=== PATIENT | male | born 1940 | race Caucasian/White ===

== ENCOUNTER → 2017-11-13 | Day surgery (SDC) | payer MEDICARE, BC ==
[~2017-11-13] MED LIST: ALEVE; ASPIR 8181 MG PO; ATORVASTATIN CA20 MG PO; BALANCED SALT SOLN (OPTH) 15 ML BTL IO ONE; BUMETANIDE2 MG; CENTRUM SILVER1 EAC1; CHOLESTEROL MA1 EACH; CYCLOBENZAPRINE10 MG; DIAZEPAM5 MG PO; DOXYLAMINE; EDARBI80 MG PO; FENTANYL CITRATE/PF 100MCG/2 ML INJ ONE; FLOMAX0.4 MG PO; GABAPENTIN300 MG PO; GELATIN SPONGE 12-7MM ONE; HYDROCODON-ACE1 EAC9 PO; LASIX20 MG PO; LIDOCAINE 2% /EPINEPHRINE 20 ML SDV INJ ONE; LIDOCAINE HCL 2% LOCAL INJ 5 ML SDV VIAL INJ ONE; LOVASTATIN20 MG PO; LOVASTATIN40 MG PO; METAMUCIL; MEVACOR20 MG PO; MIDAZOLAM HCL 2 MG/2 ML VIAL ONE; NEOMYCIN/POLYMYXIN/DEX (OPTH) 3.5 GM TUBE ONE; OPANA10 MG PO; PROPOFOL IV EMULSION 10 MG/ML 20 ML VIAL ONE; UNISOM50 MG PO; [UNRECOGNIZED DRUG - OTHER]
== END | disposition home or self-care (01) ==
LOC: OR 13:16
PROVIDERS: ATTEND Ophthalmology
DX: H02.834 Dermatochalasis of left upper eyelid (principal); H02.831 Dermatochalasis of right upper eyelid; I10 Essential (primary) hypertension; I44.0 Atrioventricular block, first degree; Z88.5 Allergy status to narcotic agent; Z88.2 Allergy status to sulfonamides
CPT/HCPCS: 15823; J2001 ×2; J2250

== ENCOUNTER → 2018-08-20 | Outpatient (CLI) | payer MEDICARE, BC ==
[~2018-08-20] MED LIST changes: -BALANCED SALT SOLN (OPTH) 15 ML BTL IO ONE; -FENTANYL CITRATE/PF 100MCG/2 ML INJ ONE; -GELATIN SPONGE 12-7MM ONE; -LIDOCAINE 2% /EPINEPHRINE 20 ML SDV INJ ONE; -LIDOCAINE HCL 2% LOCAL INJ 5 ML SDV VIAL INJ ONE; -MIDAZOLAM HCL 2 MG/2 ML VIAL ONE; -NEOMYCIN/POLYMYXIN/DEX (OPTH) 3.5 GM TUBE ONE; -PROPOFOL IV EMULSION 10 MG/ML 20 ML VIAL ONE
--- NOTE | 2018-08-20 10:58 | Diagnostic Imaging Report ---
EXAMINATION: PA and lateral views of the chest. COMPARISON: None CLINICAL HISTORY: Bronchitis DISCUSSION: Lines/tubes: None. Lungs: Linear scarring/atelectasis in the left lung. No pneumonia or pulmonary edema. Pleura: No pleural effusion or pneumothorax. Heart and mediastinum: The cardiomediastinal silhouette is normal. Bones and soft tissues: No acute bony abnormalities. Remote healed rib fractures. IMPRESSION: No acute cardiopulmonary abnormalities. Signed by: Dr. Kareem Fair M.D. on 08/20/2018 10:55 AM
== END ==
LOC: RAD 10:22
PROVIDERS: ATTEND Internal Medicine
DX: J40 Bronchitis, not specified as acute or chronic (principal)
CPT/HCPCS: 71046

== ENCOUNTER 2018-08-22 15:00 | Emergency (ER) | payer MEDICARE, BC ==
[~2018-08-22] VITALS: Ht 175.3 cm; Wt 124.7 kg
--- OUTSIDE RECORDS SUMMARY | 2018-08-22 15:03 | XMS REPORT ---
Author Author [facility] Address Unknown Phone Unavailable Care Team Providers Care Form Grader Operator Name Role Phone TEO GARCIA Unavailable Unavailable Payers Payer Name Policy Type Policy Number Effective Date Expiration Date Problems This patient has no known problems. Allergies, Adverse Reactions, Alerts Allergy Name Allergy Type Status Severity Reaction(s) Onset Date Inactive Date Treating Clinician Comments Sulfa (Sulfonamide Antibiotics) DA Active U 2018-07-26 00:00:00 No Known Contrast Allergies DA Active U 2005-11-09 00:00:00 No Known Drug Allergies DA Active U 2005-11-09 00:00:00 No Known Food Allergies DA Active U 2005-11-09 00:00:00 No Known Other Allergies DA Active U 2005-11-09 00:00:00 No Known Drug Intolerances DA Active U 2003-05-11 00:00:00 Medications This patient has no known medications. Results Test Description Test Time Test Comments Text Results Atomic Results Result Comments CHEST 2 VIEWS 2018-08-20 10:54:00 [place] [address] Patient Name: MATHEW SAMPSON MR #: [id number] : 1940 Age/Sex: 78/M Req #: [id number] Adm Physician: Ordered by: TEO GARCIA MD Report #: [id number] Location: [facility] Room/Bed: Procedure: [id number] DX/CHEST 2 VIEWS Exam Date: 08/20/18 Exam Time: 1030 REPORT STATUS: Signed EXAMINATION: PA and lateral views of the chest. DEV RISON: None CLINICAL HISTORY: Bronchitis DISCUSSION: Lines/tubes: None. Lungs: Linear scarring/atelectasis in the left lung. No pneumonia or pulmonary edema. Pleura: No pleural effusion or pneumothorax. Heart and mediastinum: The cardiomediastinal silhouette is normal. Bones and soft tissues: No acute bony abnormalities. Remote healed rib fractures. IMPRESSION: No acute cardiopulmonary abnormalities. Signed by: Dr. Henry Lucas M.D. on 08/20/2018 10:55 AM Dictated By: HENRY LUCAS MD 1055 Transcribed By: ROLAND on 08/20/18 1055 COPY TO: TEO GARCIA MD - XR FLUORO FOR SPINE INJ 2018-07-29 13:13:00 Patient Name: AMTHEW SAMPSON III Unit No: [id number] EXAMS: CPT CODE: [id number] XR FLUORO FOR SPINE INJ [id number] LUMBAR EPIRADICULAR INJECTION REFERRAL PHYSICIAN: Owen Price M.D. PREOPERATIVE DIAGNOSIS: Lumbar Radiculitis POSTOPERATIVE DIAGNOSIS: Lumbar postlaminectomy with early grade 1 L4-5 spondylolisthesis, spinal stenosis and bilateral lower extremity radicular pain PROCEDURES PERFORMED: Fluoroscopically guided needle localization of the bilateral L4 and bilateral L5 spinal nerves with transforaminal epidurograms and epidural injection of local anesthetic and steroid. FINDINGS: Moderately ti ght flow seen through the foramen on the right and flow was limited in the bilateral L4-5 lateral recesses and centrally across the L4-5 disc where mild anterior epidural displacement was noted. Provocation with injection was negative. Anesthetic response was positive with the patient noting complete relief of his low back and radiating bilateral hip pains. Preinjection VAS 10/10. Postinjection VAS 0/10. Steroid response pending follow-up. ESTIMATED BLOOD LOSS: Minimal ANESTHESIA: TIVA COMPLICATIONS: None DETAILS OF PROCEDURE: After obtaining stable vital signs, informed consent and IV access, with no contraindications, the patient was taken to the operating room and placed in a prone position with all extremities padded and appropriate monitors placed. The patient was sterilely prepped and draped over the lumbosacral spine. Using fluoroscopic visualization the insertion sites were marked for paravertebral approaches and using standard technique, a 25 gauge needle was advanced to the base of each pedicle without paresthesias. Isovue-300 contrast 0.2 mL of was injected incrementally with frequent negative aspirations to produce each epidurogram. There were no signs of intravascular or intrathecal uptake. Bupivicaine 0.75% 0.25 mL with lidocaine 4% 0.5 mL and Decadron 5 mg was then incrementally injected with frequent negative aspirations and again there were no signs of intravascular or intrathecal uptake. The needles were removed and the patient was taken to the PACU in good condition. at 1313 Reported and signed by: Antonio Clarke M.D. CC: Technologist: Virginia Christensen(R) Transcribed D/ ([id number]) [facility] NAME: MATHEW SAMPSON III [address] [facility] PHYS: Antonio Banerjee MD [place], [place] [address] : 1940 AGE: 78 SEX: M LOC: EjDAVID PHONE #: [phone] EXAM DATE: 07/29/2018 STATUS: [facility] FAX #: [phone] RAD #: D/C DT PAGE 1 Signed Report Patient Name: MATHEW SAMPSON III Unit No: [id number] EXAMS: CPT CODE: [id number] XR FLUORO FOR SPINE INJ [id number] <Continued> Orig Print D/T: S: 07/29/2018 ([id number]) [facility] NAME: MATHEW SAMPSON III [address] [facility] PHYS: Antonio Banerjee MD [place], [place] [address] : 1940 AGE: 78 SEX: M LOC: EjDAVID PHONE #: [phone] EXAM DATE: 07/29/2018 STATUS: [facility] FAX #: [phone] RAD #: D/C DT PAGE 2 Signed Report
[2018-08-22] MEDS ORDERED: IPRATROPIUM BROMIDE 0.02% 2.5 ML NEB NEB STA (15:29)
[2018-08-22] MEDS ORDERED: ALBUTEROL SULF 0.083% NEB SOLN 3 ML NEB NEB STA (15:29)
[2018-08-22 15:52] LABS: BASOPHILS % 0.1 % (0.0-1.0); EOSINOPHILS % 0.4 % (0.0-6.0); HEMATOCRIT 44.2 % (38.2-49.6); HEMOGLOBIN 14.4 g/dL (14.0-18.0); LYMPHOCYTES # (AUTO) 1.7 (1.0-3.2); LYMPHOCYTES % 19.7 % (18.0-39.1); MEAN CORPUSCULAR HEMOGLOBIN 31.6 pg (28-32); MEAN CORPUSCULAR HGB CONC 32.6 g/dL (31-35); MEAN CORPUSCULAR VOLUME 97.1 fL (81-99); MONOCYTES # (AUTO) 1.1 (0.2-0.8); MONOCYTES % 13.2 % (4.4-11.3); NEUTROPHILS # (AUTO) 5.6 (2.1-6.9); NEUTROPHILS % 66.1 % (38.7-80.0); PLATELET COUNT 222 x10e3/uL (140-360); RED BLOOD COUNT 4.55 x10e6/uL (4.3-5.7); RED CELL DISTRIBUTION WIDTH 13.8 % (11.7-14.4)
[2018-08-22 16:16] LABS: INR 0.94; PROTHROMBIN TIME 13.4 seconds (11.9-14.5)
[2018-08-22 16:20] LABS: ALBUMIN 3.5 g/dL (3.5-5.0); ALBUMIN/GLOBULIN RATIO 1.1 (0.8-2.0); ANION GAP 9.3 mmol/L (8-16); CALCIUM 9.3 mg/dL (8.4-10.2); CREATININE, SERUM 1.42 mg/dL (0.72-1.25); POTASSIUM 4.3 mmol/L (3.5-5.1)
--- NOTE | 2018-08-22 16:26 | Diagnostic Imaging Report ---
Examination: Single AP view of the chest. COMPARISON: 08/20/2018 INDICATION: Fluid, congestion DISCUSSION: Lungs are well-inflated. Linear scar or atelectasis in the left mid and lower lung zones. No airspace consolidation, pleural effusion, or pneumothorax. Stable cardiomediastinal contour. No overt pulmonary edema. No acute osseous abnormalities. Healed bilateral rib fracture deformities. IMPRESSION: 1. No acute cardiopulmonary abnormalities. Signed by: Dr. Oren Bateman M.D. on 08/22/2018 4:23 PM
[2018-08-22 16:27] LABS: CREATINE KINASE MB 1.4 ng/mL (0-5.0)
[2018-08-22] MEDS ORDERED: FUROSEMIDE40 MG PO (16:36)
[2018-08-22] MEDS ORDERED: DIAZEPAM5 MG PO (16:36)
[2018-08-22 16:46] LABS: B-TYPE NATRIURETIC PEPTIDE2 11.3 pg/mL (0-100)
[2018-08-22] MEDS ORDERED: DEXAMETHASONE SOD PHOS 10 MG/1 ML VIAL IV ONE (17:00)
[2018-08-22] MEDS ORDERED: SODIUM CHLORIDE 0.9% 1000ML 1,000 ML IV SCH (17:15)
[2018-08-22] MEDS ORDERED: AZITHROMYCIN 250 MG TAB PO ONE (19:00)
[2018-08-22 19:23] VITALS: BP 138/68
== END 2018-08-22 19:40 | disposition home or self-care (01) ==
LOC: ER 15:00
DX: R50.9 Fever, unspecified (principal); J02.0 Streptococcal pharyngitis
CPT/HCPCS: 36415; 71045; 80053; 82550; 82553; 83518; 83605; 83880; 84484; 85025; 85610; 85730; 87040; 93005; 94640; 99284; J1100; J7030

== ENCOUNTER 2019-01-26 16:08 | Observation (INO) | payer MEDICARE, BC ==
[~2019-01-26] VITALS: Ht 154.7 cm; Wt 121.6 kg
[~2019-01-26 16:08] MED LIST changes: +FUROSEMIDE40 MG PO
[2019-01-26] MEDS ORDERED: ASPIRIN 325 MG TAB PO ONE (16:21)
[2019-01-26 17:11] LABS: BILIRUBIN,URINE NEGATIVE (NEGATIVE); CLARITY,URINE CLEAR (CLEAR); COLOR,URINE YELLOW (YELLOW); KETONES,URINE NEGATIVE (NEGATIVE); LEUKOCYTE ESTERASE ,URINE NEGATIVE (NEGATIVE); NITRITE,URINE NEGATIVE (NEGATIVE); PROTEIN,URINE DIPSTICK NEGATIVE (NEGATIVE); URINE UROBILINOGEN 0.2 mg/dL (0.2 - 1)
[2019-01-26 17:23] LABS: BACTERIA,URINE RARE /HPF; WBC,URINE (MAN) 0-5 /HPF (0-5)
[2019-01-26 17:43] LABS: BASOPHILS % 0.3 % (0.0-1.0); EOSINOPHILS # (AUTO) 0.1 (0.0-0.4); EOSINOPHILS % 1.6 % (0.0-6.0); HEMATOCRIT 48.5 % (38.2-49.6); HEMOGLOBIN 15.4 g/dL (14.0-18.0); MEAN CORPUSCULAR HEMOGLOBIN 31.8 pg (28-32); MEAN CORPUSCULAR HGB CONC 31.8 g/dL (31-35); MONOCYTES # (AUTO) 0.6 (0.2-0.8); MONOCYTES % 10.8 % (4.4-11.3); PLATELET COUNT 221 x10e3/uL (140-360); RED BLOOD COUNT 4.85 x10e6/uL (4.3-5.7)
--- NOTE | 2019-01-26 17:45 | Diagnostic Imaging Report ---
History:Blurry vision Comparison studies:None Technique: Axial images were obtained from the skull base to the vertex. Coronal and sagittal images reconstructed from the axial data. Intravenous contrast: None Dose modulation, iterative reconstruction, and/or weight based adjustment of the mA/kV was utilized to reduce the radiation dose to as low as reasonably achievable. Findings: Scalp/skull: No abnormalities. Extra-axial spaces: No masses. No fluid collections. Brain sulci: Age-appropriate. Ventricles: Age-appropriate. No hydrocephalus. Parenchyma: Subtle hypodensities in the supratentorial white matter are small vessel ischemic changes. No masses, hemorrhage, acute or chronic cortical vascular insults. Sellar/suprasellar region: No abnormalities. Craniocervical junction: Patent foramen magnum. No Chiari one malformation. Incidental findings: Atherosclerotic calcifications in the carotid siphons . Impression: No acute abnormalities. Chronic findings: 1. Minimal supratentorial white matter small vessel ischemic changes. Signed by: DR Juliocesar Arce M.D. on 01/26/2019 5:42 PM
[2019-01-26 17:57] LABS: INR 0.84
[2019-01-26 18:04] LABS: ALBUMIN 3.8 g/dL (3.5-5.0); ALBUMIN/GLOBULIN RATIO 1.1 (0.8-2.0); ANION GAP 15.8 mmol/L (8-16); CALCIUM 9.9 mg/dL (8.4-10.2); CREATININE, SERUM 1.4 mg/dL (0.72-1.25); POTASSIUM 4.8 mmol/L (3.5-5.1)
[2019-01-26] MEDS ORDERED: SODIUM CHLORIDE FLUSH 10 ML SYR INJ PRN (18:30)
[2019-01-26] MEDS ORDERED: HYDROCODONE/APAP 10MG-325MG TAB PO PRN (19:15)
[2019-01-26 19:49] VITALS: BP 138/62
[2019-01-26 19:50] VITALS: BP 138/62
--- NOTE | 2019-01-26 19:50 | NUR ---
patient received to room 292 via wheelchair from er at this time. vss. no c/o pain noted. patient awake, alert, oriented x 3. patient c/o visual deficit to right eye but none noted to left eye. admit assessment/history complete. patient sitting up in recliner. patient instructed to call for assistance when needed.
[2019-01-26 20:00] VITALS: BP 138/62
[2019-01-26] MEDS ORDERED: SIMVASTATIN 40 MG TAB PO SCH (21:00)
[2019-01-27 00:16] VITALS: BP 132/63
[2019-01-27 04:00] VITALS: BP 148/68
--- NOTE | 2019-01-27 07:30 | NUR ---
PT UP IN RECLINER ,NO DISTRESS NOTED.RT EYE UNABLE TO SEE.
[2019-01-27 08:07] VITALS: BP 147/73
[2019-01-27] MEDS: ASPIRIN 325 MG TAB EC PO SCH ×2 (08:23→09:00)
[2019-01-27] MEDS ORDERED: AZILSARTAN MEDOXOMIL 80 MG PO SCH (09:00)
[2019-01-27] MEDS ORDERED: SIMVASTATIN 20 MG TAB PO SCH (09:00)
[2019-01-27] MEDS ORDERED: TAMSULOSIN HCL 0.4 MG CAP PO SCH (09:00)
[2019-01-27 11:52] VITALS: BP 136/64
[2019-01-27] MEDS ORDERED: GADOBENATE DIMEGLUMINE 1 ML IV ONE (12:11)
[2019-01-27] MEDS ORDERED: SODIUM CHLORIDE 0.9% 100 ML 100 ML ONE (12:11)
--- NOTE | 2019-01-27 13:30 | NUR ---
pt transported to mri via w/c.
[2019-01-27] MEDS ORDERED: ONDANSETRON HCL 4 MG ORAL DISINTEGRATING TAB PO PRN (14:00)
--- NOTE | 2019-01-27 14:00 | NUR ---
pt returned to room via w/c ,iv out, contrast infiltrated in mri,lt elbow swollen,,pt c/o nausea paged dr natarajan
--- NOTE | 2019-01-27 14:33 | NUR ---
spoke with dr natarajan,orders written,.medicated for nausea po
--- NOTE | 2019-01-27 15:18 | Diagnostic Imaging Report ---
Examination: MRI BRAIN WO CONTRAST History: vision loss of the right eye. Comparison studies: Head CT dated 01/26/2019 Technique: Sagittal T2; axial DWI, FLAIR, T1. Patient refused to go further with the exam. Intravenous contrast: None Findings: Scalp: No abnormal signal. No masses. Bone marrow: Normal in signal intensity. Brain volume: Mild volume loss. Ventricles: No hydrocephalus. Extra-axial spaces: No abnormalities. Parenchyma: There are a few scattered punctate areas of T2/FLAIR hyperintensity in the periventricular and subcortical white matter, nonspecific. No masses, hemorrhage, acute or chronic vascular insults. Suprasellar and sellar region: No abnormalities. Craniocervical junction: No abnormalities. The foramen magnum is patent. No Chiari malformations. Vessels: Normal flow-voids in the arteries and sinuses. Additional findings:None. IMPRESSION: 1. No acute intracranial abnormalities. 2. Minimal chronic microvascular ischemic change. Mild generalized volume loss. Signed by: Dr. Lucía Mccoy M.D. on 01/27/2019 3:14 PM
--- NOTE | 2019-01-27 15:22 | Diagnostic Imaging Report ---
Examination: MRA HEAD WO, MRA NECK WO CONTRAST History: Right eye vision loss. Comparison studies: None Technique: 2-D and 3-D [id number] MR angiograms of the cervical and intracranial circulations were obtained. MIP images of the arteries were isolated into the right and left cervical circulations and anterior and posterior intracranial circulations, 180 degree projections. Sagittal and coronal MPR images, and axial source images are available for evaluation. Degree of stenosis at the carotid bulbs, if present, will be calculated using NASCET criteria where the smallest diameter at the location of stenosis is compared to the diameter of the more distal non-diseased vessel lumen. Findings: Cervical MRA Aortic arch: Normal 3 great vessel origin. Patent. Internal carotid arteries: No flow abnormalities at the origins of the common carotid arteries, the cervical carotid bifurcations or in the cervical segments. Vertebral arteries: No flow abnormalities at the origins of the vertebral arteries or through its cervical segments (V1-V3). Intracranial MRA: Internal carotid arteries: Patent.. Anterior cerebral arteries: Patent A1 segments with a hypoplastic left A1 segment. Middle cerebral arteries: Patent M1 segments.. Vertebrobasilar circulation: Patent. Posterior cerebral arteries: Patent bilaterally.. Anatomical variants: Anterior communicating arteries: Patent. Posterior communicating arteries: Not visualized. Vertebral arteries:Left dominant. IMPRESSION: No cervical or intracranial arterial stenosis or occlusion or vascular malformation. Signed by: Dr. Lucía Mccoy M.D. on 01/27/2019 3:19 PM
[2019-01-27 16:15] VITALS: BP 119/66
--- NOTE | 2019-01-27 17:27 | NUR ---
DR ROBERT HERE.PT UP IN CHAIR NO DISTRESS NTOED,DENIES PAIN,EYE GIVEN TO PT
[2019-01-27 19:05] LABS: CHOL/HDL RATIO 3.9 (3.9-4.7)
--- NOTE | 2019-01-27 19:31 | NUR ---
PT DISCHARGED HOME ,INSTRUCTIONS GIVEN COPY ON CHART,TRANSPORTED TO AUTO VIA W/C
[2019-01-27] MEDS ORDERED: HEPARIN SOD (PORCINE) 5,000 UNIT/ML VIAL SC SCH (21:00)
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
[2019-01-28] MEDS ORDERED: FAMOTIDINE 20 MG TAB PO SCH (07:30)
--- NOTE | 2019-02-03 10:19 | Discharge Summary ---
DISCHARGE DIAGNOSIS: Right retinal detachment. HISTORY OF PRESENT ILLNESS: The patient is a gentleman, who presented with right eye vision changes, worrisome for possible CVA, so he was brought in and he had his cardiac workup with an MRI and MRA of the brain and neck were unremarkable, showing no evidence of a stroke. He was seen by Dr. Nava of Ophthalmology, found to have a right retinal detachment. So, he was able to be discharged home and he has follow up in two days with a retina specialist to perform surgery. Please see hospital chart for full details. MD CAESAR Powers/LLOYD /[id number]
== END 2019-01-27 19:34 | disposition home or self-care (01) ==
LOC: ER 16:08 → ERHOLD 18:54 → MED/SURG3 19:50
PROVIDERS: ADMIT Internal Medicine; ATTEND Internal Medicine
DX: H53.461 Homonymous bilateral field defects, right side (principal); H33.8 Other retinal detachments; G45.3 Amaurosis fugax; Z88.0 Allergy status to penicillin; Z88.2 Allergy status to sulfonamides; F41.9 Anxiety disorder, unspecified; E78.5 Hyperlipidemia, unspecified; Z85.038 Personal history of other malignant neoplasm of large intestine; M54.9 Dorsalgia, unspecified; E78.00 Pure hypercholesterolemia, unspecified; N40.0 Benign prostatic hyperplasia without lower urinary tract symptoms; I12.9 Hypertensive chronic kidney disease with stage 1 through stage 4 chronic kidney disease, or unspecified chronic kidney disease; N18.3 Chronic kidney disease, stage 3 (moderate); E66.01 Morbid (severe) obesity due to excess calories; Z68.43 Body mass index [BMI] 50.0-59.9, adult
CPT/HCPCS: 36415 ×2; 70450; 70544; 70547; 70551; 80053; 80061; 81001; 83036; 85025; 85610; 93005; 93306; 99284; A9577; G0378 ×2; Q0162

== ENCOUNTER → 2019-04-09 | Outpatient (CLI) | payer MEDICARE, BC | LOC: RAD 08:25 | PROVIDERS: ATTEND Internal Medicine | DX: R60.0 Localized edema (principal) | CPT/HCPCS: 93970 ==

== ENCOUNTER → 2020-12-13 | Outpatient (CLI) | payer MEDICARE, BC | LOC: MRI 08:27 | PROVIDERS: ATTEND Internal Medicine | DX: M54.31 Sciatica, right side (principal) ==

== ENCOUNTER 2022-02-27 02:03 | Emergency (ER) | payer MEDICARE, BC, OTHER ==
[~2022-02-27] VITALS: Ht 154.7 cm; Wt 140.6 kg
[2022-02-27] MEDS ORDERED: HYDROCODONE/APAP 10MG-325MG TAB PO ONE (04:30)
[2022-02-27] MEDS ORDERED: HYDROCODONE/APAP 10MG-325MG TAB ONE (04:48)
== END 2022-02-27 05:00 | disposition home or self-care (01) ==
LOC: ER 02:14
DX: M54.50 Low back pain, unspecified (principal); M54.6 Pain in thoracic spine; G89.29 Other chronic pain; W01.0XXA Fall on same level from slipping, tripping and stumbling without subsequent striking against object, initial encounter; Y92.89 Other specified places as the place of occurrence of the external cause; I10 Essential (primary) hypertension; E78.5 Hyperlipidemia, unspecified; Z85.038 Personal history of other malignant neoplasm of large intestine; Z98.0 Intestinal bypass and anastomosis status
CPT/HCPCS: 71045; 72128; 72131; 99284

== ENCOUNTER 2022-02-28 10:24 | Inpatient (IN) | payer MEDICARE, BC ==
[~2022-02-28] VITALS: Ht 175.3 cm; Wt 130.6 kg
[2022-02-28] MEDS ORDERED: HYDROCODONE/APAP 5MG-325MG TAB PO PRN (11:30)
[2022-02-28] MEDS ORDERED: ONDANSETRON HCL INJ 2MG/ML 2ML 2 MG/ML VIAL IV PRN (12:15)
[2022-02-28] MEDS ORDERED: SODIUM CHLORIDE FLUSH 10 ML SYR INJ PRN (12:15)
[2022-02-28 14:31] VITALS: BP 137/42
[2022-02-28] MEDS: Morphine 4mg INJECTION 4 MG/ML INJ IV PRN (15:19)
[2022-02-28 16:53] VITALS: BP 122/86
[2022-02-28] MEDS: HYDROCODONE/APAP 5MG-325MG TAB PO PRN ×2 (18:53→22:46)
[2022-02-28 20:00] VITALS: BP 146/76
[2022-02-28 23:03] VITALS: BP 146/76
[2022-03-01] VITALS (7 sets, daily range): BP systolic 105–137; BP diastolic 71–98
[2022-03-01] MEDS ORDERED: ZOLPIDEM TARTRATE 5 MG TAB PO PRN (01:45)
[2022-03-01] MEDS ORDERED: DIAZEPAM 5 MG TAB PO PRN (03:45)
[2022-03-01 05:35] LABS: BASOPHILS % 0.3 % (0.0-1.0); EOSINOPHILS % 0.6 % (0.0-6.0); HEMATOCRIT 46.5 % (38.2-49.6); HEMOGLOBIN 14.8 g/dL (14.0-18.0); LYMPHOCYTES # (AUTO) 1.3 (1.0-3.2); LYMPHOCYTES % 19.2 % (18.0-39.1); MEAN CORPUSCULAR HEMOGLOBIN 32.9 pg (28-32); MEAN CORPUSCULAR HGB CONC 31.8 g/dL (31-35); MEAN CORPUSCULAR VOLUME 103.3 fL (81-99); MONOCYTES # (AUTO) 0.7 (0.2-0.8); MONOCYTES % 10.3 % (4.4-11.3); NEUTROPHILS # (AUTO) 4.8 (2.1-6.9); PLATELET COUNT 216 x10e3/uL (140-360); RED CELL DISTRIBUTION WIDTH 13.1 % (11.7-14.4)
[2022-03-01 06:33] LABS: ALBUMIN 3.2 g/dL (3.5-5.0); ALBUMIN/GLOBULIN RATIO 0.9 (0.8-2.0); ANION GAP 16.1 mmol/L (8-16); CALCIUM 9.6 mg/dL (8.4-10.2); CREATININE, SERUM 0.94 mg/dL (0.72-1.25); MAGNESIUM 1.8 MG/DL (1.3-2.1); POTASSIUM 4.1 mmol/L (3.5-5.1)
[2022-03-01] MEDS: TAMSULOSIN HCL 0.4 MG CAP PO SCH (09:58)
[2022-03-01] MEDS: SIMVASTATIN 20 MG TAB PO SCH (09:58)
[2022-03-01] MEDS: HYDROCODONE/APAP 5MG-325MG TAB PO PRN ×2 (12:15→18:15)
[2022-03-01] MEDS ORDERED: MAGNESIUM HYDROXIDE 30 ML UDC PO PRN (18:45)
[2022-03-02] VITALS (7 sets, daily range): BP systolic 110–129; BP diastolic 63–78
[2022-03-02] MEDS: HYDROCODONE/APAP 5MG-325MG TAB PO PRN ×4 (01:01→21:26)
[2022-03-02] MEDS: SIMVASTATIN 20 MG TAB PO SCH (09:08)
[2022-03-02] MEDS: TAMSULOSIN HCL 0.4 MG CAP PO SCH (09:11)
[2022-03-02] MEDS ORDERED: ONDANSETRON HCL 4 MG ORAL DISINTEGRATING TAB SL PRN (10:00)
[2022-03-03] VITALS (8 sets, daily range): BP systolic 84–133; BP diastolic 50–79
[2022-03-03] MEDS: HYDROCODONE/APAP 5MG-325MG TAB PO PRN ×3 (06:39→19:40)
[2022-03-03 07:28] LABS: BASOPHILS % 0.4 % (0.0-1.0); EOSINOPHILS # (AUTO) 0.1 (0.0-0.4); EOSINOPHILS % 0.5 % (0.0-6.0); HEMATOCRIT 44.8 % (38.2-49.6); HEMOGLOBIN 14.5 g/dL (14.0-18.0); MEAN CORPUSCULAR HEMOGLOBIN 32.8 pg (28-32); MEAN CORPUSCULAR HGB CONC 32.4 g/dL (31-35); MEAN CORPUSCULAR VOLUME 101.4 fL (81-99); MONOCYTES # (AUTO) 0.8 (0.2-0.8); MONOCYTES % 8.5 % (4.4-11.3); NEUTROPHILS # (AUTO) 6.5 (2.1-6.9); NEUTROPHILS % 69.3 % (38.7-80.0); PLATELET COUNT 209 x10e3/uL (140-360); RED BLOOD COUNT 4.42 x10e6/uL (4.3-5.7); RED CELL DISTRIBUTION WIDTH 13.2 % (11.7-14.4)
[2022-03-03 07:52] LABS: ALBUMIN 3.1 g/dL (3.5-5.0); ALBUMIN/GLOBULIN RATIO 0.8 (0.8-2.0); ANION GAP 17.2 mmol/L (8-16); CALCIUM 9.3 mg/dL (8.4-10.2); CREATININE, SERUM 0.94 mg/dL (0.72-1.25); MAGNESIUM 2.2 MG/DL (1.3-2.1); POTASSIUM 4.2 mmol/L (3.5-5.1)
[2022-03-03] MEDS: TAMSULOSIN HCL 0.4 MG CAP PO SCH (08:50)
[2022-03-03] MEDS: SIMVASTATIN 20 MG TAB PO SCH (08:51)
[2022-03-03] MEDS ORDERED: CLONIDINE HCL 0.1 MG TAB PO PRN (16:45)
[2022-03-04] VITALS (8 sets, daily range): BP systolic 96–139; BP diastolic 62–74
[2022-03-04] MEDS: HYDROCODONE/APAP 5MG-325MG TAB PO PRN ×4 (01:33→23:00)
[2022-03-04] MEDS: Morphine 4mg INJECTION 4 MG/ML INJ IV PRN ×3 (03:58→20:45)
[2022-03-04] MEDS: TAMSULOSIN HCL 0.4 MG CAP PO SCH (09:17)
[2022-03-04] MEDS: SIMVASTATIN 20 MG TAB PO SCH (09:18)
[2022-03-04] MEDS ORDERED: ALBUTEROL/IPRATROPIUM 3 ML NEB NEB PRN (18:15)
[2022-03-05] VITALS (8 sets, daily range): BP systolic 113–145; BP diastolic 58–77
[2022-03-05] MEDS: HYDROCODONE/APAP 5MG-325MG TAB PO PRN ×5 (01:30→17:40)
[2022-03-05] MEDS: SIMVASTATIN 20 MG TAB PO SCH (08:35)
[2022-03-05] MEDS: Morphine 4mg INJECTION 4 MG/ML INJ IV PRN ×2 (08:38→15:08)
[2022-03-05] MEDS: TAMSULOSIN HCL 0.4 MG CAP PO SCH ×2 (09:00→11:07)
== END 2022-03-05 22:00 | DRG 552 ==
LOC: ER 10:30 → ERHOLD 12:07 → MED/SURG3 14:14
PROVIDERS: ADMIT Internal Medicine; ATTEND Internal Medicine
DX: S32.009A Unspecified fracture of unspecified lumbar vertebra, initial encounter for closed fracture (principal); Z68.41 Body mass index [BMI] 40.0-44.9, adult; M54.9 Dorsalgia, unspecified; I10 Essential (primary) hypertension; N40.0 Benign prostatic hyperplasia without lower urinary tract symptoms; E78.5 Hyperlipidemia, unspecified; G89.29 Other chronic pain; Z74.09 Other reduced mobility; R29.6 Repeated falls; I89.0 Lymphedema, not elsewhere classified; W19.XXXA Unspecified fall, initial encounter; F41.9 Anxiety disorder, unspecified; E78.00 Pure hypercholesterolemia, unspecified; E66.01 Morbid (severe) obesity due to excess calories
CPT/HCPCS: 0223U; 36415; 72131; 72192; 80053; 82948; 83735; 85025; 99251; 99284; J2270; J2405

== ENCOUNTER 2023-05-28 07:45 | Inpatient (IN) | payer MEDICARE, BC ==
[~2023-05-28] VITALS: Ht 175.3 cm; Wt 135.6 kg
[2023-05-28] VITALS (9 sets, daily range): BP systolic 107–150; BP diastolic 51–71; PULSE 90–97; RESP 18–22; TEMP 97.8–98.9; O2SAT 94–100
[2023-05-28 08:17] LABS: BASOPHILS % 0.5 % (0.0-1.0); EOSINOPHILS # (AUTO) 0.1 (0.0-0.4); HEMATOCRIT 45.9 % (38.2-49.6); HEMOGLOBIN 14.1 g/dL (14.0-18.0); LYMPHOCYTES % 23.3 % (18.0-39.1); MEAN CORPUSCULAR HEMOGLOBIN 31.1 pg (28-32); MEAN CORPUSCULAR HGB CONC 30.7 g/dL (31-35); MEAN CORPUSCULAR VOLUME 101.3 fL (81-99); MONOCYTES % 11.2 % (4.4-11.3); NEUTROPHILS # (AUTO) 5.5 (2.1-6.9); NEUTROPHILS % 63.5 % (38.7-80.0); PLATELET COUNT 281 x10e3/uL (140-360); RED BLOOD COUNT 4.53 x10e6/uL (4.3-5.7); WHITE BLOOD COUNT 8.58 x10e3/uL (4.8-10.8)
[2023-05-28 08:53] LABS: ALBUMIN 3.6 g/dL (3.5-5.0); ALBUMIN/GLOBULIN RATIO 0.9 (0.8-2.0); ANION GAP 15.5 mmol/L (8-16); BILIRUBIN,TOTAL 0.9 mg/dL (0.2-1.2); CALCIUM 10.2 mg/dL (8.4-10.2); CREATININE, SERUM 1.37 mg/dL (0.72-1.25); POTASSIUM 4.5 mmol/L (3.5-5.1); TOTAL PROTEIN 7.8 g/dL (6.5-8.1)
[2023-05-28 12:34] LABS: COLOR,URINE YELLOW (YELLOW)
[2023-05-28 12:35] LABS: BILIRUBIN,URINE SMALL (NEGATIVE); CLARITY,URINE SL CLOUDY (CLEAR); GLUCOSE, URINE NEGATIVE (NEGATIVE); KETONES,URINE TRACE (NEGATIVE); LEUKOCYTE ESTERASE ,URINE NEGATIVE (NEGATIVE); NITRITE,URINE NEGATIVE (NEGATIVE); PH,URINE 5.5 (5 - 7); PROTEIN,URINE DIPSTICK TRACE (NEGATIVE); URINE UROBILINOGEN 0.2 mg/dL (0.2 - 1)
[2023-05-28 12:36] LABS: BACTERIA,URINE FEW /HPF; EPITHELIAL CELLS,URINE FEW /LPF; RBC,URINE 0-5 /HPF (0-5)
[2023-05-28] MEDS: HYDROCODONE/APAP 10MG-325MG TAB PO PRN ×2 (16:40→23:17)
[2023-05-28] MEDS: SIMVASTATIN 40 MG TAB PO SCH (23:13)
[2023-05-29] VITALS (7 sets, daily range): BP systolic 125–147; BP diastolic 50–70; PULSE 85–94; RESP 18–22; TEMP 97.9–98.6; O2SAT 93–96
[2023-05-29] MEDS: DIAZEPAM 5 MG TAB PO PRN ×2 (01:48→22:30)
[2023-05-29 05:35] LABS: BASOPHILS % 0.4 % (0.0-1.0); EOSINOPHILS # (AUTO) 0.2 (0.0-0.4); EOSINOPHILS % 2.1 % (0.0-6.0); HEMATOCRIT 44.5 % (38.2-49.6); HEMOGLOBIN 13.7 g/dL (14.0-18.0); LYMPHOCYTES # (AUTO) 2.2 (1.0-3.2); LYMPHOCYTES % 26.9 % (18.0-39.1); MEAN CORPUSCULAR HEMOGLOBIN 30.9 pg (28-32); MEAN CORPUSCULAR HGB CONC 30.8 g/dL (31-35); MEAN CORPUSCULAR VOLUME 100.5 fL (81-99); MONOCYTES # (AUTO) 0.8 (0.2-0.8); MONOCYTES % 10.3 % (4.4-11.3); NEUTROPHILS # (AUTO) 4.9 (2.1-6.9); NEUTROPHILS % 59.9 % (38.7-80.0); PLATELET COUNT 264 x10e3/uL (140-360); RED BLOOD COUNT 4.43 x10e6/uL (4.3-5.7); WHITE BLOOD COUNT 8.19 x10e3/uL (4.8-10.8)
[2023-05-29 06:09] LABS: ANION GAP 15.4 mmol/L (8-16); CALCIUM 9.2 mg/dL (8.4-10.2); CREATININE, SERUM 1.13 mg/dL (0.72-1.25); POTASSIUM 4.4 mmol/L (3.5-5.1)
[2023-05-29] MEDS: TAMSULOSIN HCL 0.4 MG CAP PO SCH (08:24)
[2023-05-29] MEDS: HYDROCODONE/APAP 10MG-325MG TAB PO PRN ×2 (08:26→14:54)
[2023-05-29] MEDS: AZILSARTAN MEDOXOMIL 80 MG PO SCH (08:32)
[2023-05-29] MEDS ORDERED: MUPIROCIN 2% OINT 22 GM TUBE TOP SCH ×2 (15:00→21:00)
[2023-05-29] MEDS: SIMVASTATIN 40 MG TAB PO SCH (22:30)
[2023-05-30] VITALS: BP 118/54; PULSE 80; RESP 18; TEMP 97.6; O2SAT 95
[2023-05-30 04:00] VITALS: BP 118/60; PULSE 79; RESP 18; TEMP 97.8; O2SAT 94
[2023-05-30 08:00] VITALS: BP 118/60; PULSE 79; RESP 18; TEMP 97.8; O2SAT 94
[2023-05-30] MEDS: TAMSULOSIN HCL 0.4 MG CAP PO SCH (08:39)
[2023-05-30] MEDS: AZILSARTAN MEDOXOMIL 80 MG PO SCH (08:39)
[2023-05-30] MEDS ORDERED: POLYETHYLENE GLYCOL 3350 17 GM PACK PO PRN (09:45)
[2023-05-30 12:07] VITALS: BP 126/63; PULSE 72; RESP 20; TEMP 98.7; O2SAT 100
== END 2023-05-30 12:48 | DRG 552 ==
LOC: ER 07:49 → ERHOLD 09:09 → MED/SURG 11:50
PROVIDERS: ADMIT Internal Medicine; ATTEND Internal Medicine
DX: M54.50 Low back pain, unspecified (principal); Z68.41 Body mass index [BMI] 40.0-44.9, adult; I13.0 Hypertensive heart and chronic kidney disease with heart failure and stage 1 through stage 4 chronic kidney disease, or unspecified chronic kidney disease; N18.30 Chronic kidney disease, stage 3 unspecified; I50.9 Heart failure, unspecified; R53.1 Weakness; R53.81 Other malaise; R29.6 Repeated falls; E66.01 Morbid (severe) obesity due to excess calories; I89.0 Lymphedema, not elsewhere classified; E78.5 Hyperlipidemia, unspecified; G89.29 Other chronic pain; D64.9 Anemia, unspecified; F41.9 Anxiety disorder, unspecified; N40.0 Benign prostatic hyperplasia without lower urinary tract symptoms; S00.81XA Abrasion of other part of head, initial encounter; S80.212A Abrasion, left knee, initial encounter; S80.211A Abrasion, right knee, initial encounter; S50.312A Abrasion of left elbow, initial encounter; S50.311A Abrasion of right elbow, initial encounter; W18.30XA Fall on same level, unspecified, initial encounter; Y92.009 Unspecified place in unspecified non-institutional (private) residence as the place of occurrence of the external cause; Z95.810 Presence of automatic (implantable) cardiac defibrillator; Z85.038 Personal history of other malignant neoplasm of large intestine; Z20.822 Contact with and (suspected) exposure to COVID-19
CPT/HCPCS: 36415; 70450; 71045; 80048; 80053; 81001; 84484; 85025; 93005; 93925; 93970; 94799; 99252; 99285; U0002